=== PATIENT | female | born 1950 | race Caucasian/White ===

== ENCOUNTER 2021-07-23 15:52 | Observation (INO) | payer MEDICARE ==
[~2021-07-23] VITALS: Ht 162.6 cm; Wt 86.6 kg
[2021-07-23] MEDS ORDERED: ASPIRIN 325 MG TAB PO ONE (16:30)
[2021-07-23] MEDS ORDERED: SODIUM CHLORIDE FLUSH 10 ML SYR IV PRN (16:30)
[2021-07-23 16:42] LABS: BASOPHILS # (AUTO) 0.1 (0.0-0.1); BASOPHILS % 0.8 % (0.0-1.0); EOSINOPHILS # (AUTO) 0.3 (0.0-0.4); HEMATOCRIT 41.3 % (34.2-44.1); HEMOGLOBIN 13.6 g/dL (12.0-16.0); LYMPHOCYTES # (AUTO) 2.5 (1.0-3.2); LYMPHOCYTES % 25.2 % (18.0-39.1); MEAN CORPUSCULAR HEMOGLOBIN 28.9 pg (28-32); MEAN CORPUSCULAR HGB CONC 32.9 g/dL (31-35); MEAN CORPUSCULAR VOLUME 87.9 fL (81-99); MONOCYTES % 9.7 % (4.4-11.3); NEUTROPHILS # (AUTO) 6.1 (2.1-6.9); NEUTROPHILS % 60.7 % (38.7-80.0); PLATELET COUNT 366 x10e3/uL (140-360); RED CELL DISTRIBUTION WIDTH 12.6 % (11.7-14.4)
[2021-07-23 17:04] LABS: ALANINE AMINOTRANSFERASE 21 IU/L (0-55); ALBUMIN 3.6 g/dL (3.5-5.0); ALBUMIN/GLOBULIN RATIO 1.1 (0.8-2.0); ALKALINE PHOSPHATASE 104 IU/L (40-150); ANION GAP 14.9 mmol/L (8-16); BLOOD UREA NITROGEN 12 mg/dL (7-26); BUN/CREATININE RATIO 13 (6-25); CALCIUM 9.1 mg/dL (8.4-10.2); CARBON DIOXIDE 26 mmol/L (22-29); CHLORIDE 104 mmol/L (98-107); CREATININE, SERUM 0.91 mg/dL (0.57-1.11); GLUCOSE 109 mg/dL (74-118); POTASSIUM 3.9 mmol/L (3.5-5.1); SODIUM 141 mmol/L (136-145)
[2021-07-23] MEDS ORDERED: ASPIRIN 81 MG CHEW TAB PO ONE (18:00)
[2021-07-23] MEDS ORDERED: SODIUM CHLORIDE FLUSH 10 ML SYR INJ PRN (18:00)
[2021-07-23] MEDS ORDERED: ONDANSETRON HCL INJ 2MG/ML 2ML 2 MG/ML VIAL IV PRN (18:00)
[2021-07-23 20:00] VITALS: BP 145/69
[2021-07-23 20:09] VITALS: BP 145/69
[2021-07-23] MEDS ORDERED: NEURONTIN300 MG PO (21:25)
[2021-07-23] MEDS: GABAPENTIN 300 MG CAP PO SCH (23:08)
[2021-07-24] VITALS (7 sets, daily range): BP systolic 115–152; BP diastolic 56–93
[2021-07-24 00:51] LABS: CREATINE KINASE 95 IU/L (29-168)
[2021-07-24 07:31] LABS: CREATINE KINASE 87 IU/L (29-168)
[2021-07-24] MEDS ORDERED: NITROGLYCERIN 0.4 MG SUBL SL PRN (09:30)
[2021-07-24] MEDS ORDERED: Morphine 2mg Syringe 2 MG/ML SYR IV PRN (09:30)
[2021-07-24] MEDS ORDERED: DOCUSATE SODIUM LIQD 100 MG/10 ML UDC NG PRN (09:45)
[2021-07-24] MEDS ORDERED: HYDRALAZINE HCL 20 MG/ML VIAL IV PRN (09:45)
[2021-07-24] MEDS: ASPIRIN 81 MG ENTERIC COATED PO SCH (10:00)
[2021-07-24] MEDS ORDERED: LASIX40 MG PO (17:06)
[2021-07-24] MEDS ORDERED: FLUOXETINE HCL20 MG PO (17:06)
[2021-07-24] MEDS ORDERED: LISINOPRIL10 MG PO (17:06)
[2021-07-24] MEDS: GABAPENTIN 300 MG CAP PO SCH (20:48)
[2021-07-25 04:00] VITALS: BP 159/77
[2021-07-25 05:26] LABS: BASOPHILS # (AUTO) 0.1 (0.0-0.1); BASOPHILS % 1.1 % (0.0-1.0); EOSINOPHILS # (AUTO) 0.4 (0.0-0.4); EOSINOPHILS % 5.4 % (0.0-6.0); HEMATOCRIT 41.6 % (34.2-44.1); HEMOGLOBIN 13.4 g/dL (12.0-16.0); LYMPHOCYTES # (AUTO) 2.5 (1.0-3.2); LYMPHOCYTES % 30.1 % (18.0-39.1); MEAN CORPUSCULAR HEMOGLOBIN 28.8 pg (28-32); MEAN CORPUSCULAR HGB CONC 32.2 g/dL (31-35); MEAN CORPUSCULAR VOLUME 89.3 fL (81-99); MONOCYTES # (AUTO) 0.8 (0.2-0.8); MONOCYTES % 9.2 % (4.4-11.3); NEUTROPHILS # (AUTO) 4.4 (2.1-6.9); NEUTROPHILS % 53.8 % (38.7-80.0); PLATELET COUNT 327 x10e3/uL (140-360); RED BLOOD COUNT 4.66 x10e6/uL (3.6-5.1); RED CELL DISTRIBUTION WIDTH 12.6 % (11.7-14.4)
[2021-07-25 05:48] LABS: ANION GAP 13.2 mmol/L (8-16); CALCIUM 8.3 mg/dL (8.4-10.2); CREATININE, SERUM 0.85 mg/dL (0.57-1.11); POTASSIUM 4.2 mmol/L (3.5-5.1)
[2021-07-25] MEDS ORDERED: NITROSTAT0.4 MG SL (07:40)
[2021-07-25] MEDS ORDERED: ASPIRIN EC81 MG PO (07:40)
[2021-07-25 08:02] VITALS: BP 149/70
[2021-07-25] MEDS ORDERED: LISINOPRIL 10 MG TAB PO SCH (09:00)
[2021-07-25] MEDS ORDERED: FUROSEMIDE 40 MG TAB PO SCH (09:00)
[2021-07-25] MEDS ORDERED: FLUOXETINE HCL 20 MG CAP PO SCH (09:00)
[2021-07-25] MEDS: ASPIRIN 81 MG ENTERIC COATED PO SCH (09:00)
[2021-07-25 12:20] VITALS: BP 143/72
== END 2021-07-25 12:45 | disposition home or self-care (01) ==
LOC: ER 16:01 → INTOOBSV 17:59 → ERHOLD 17:59 → MED/SURG 19:53
PROVIDERS: ADMIT Internal Medicine; ATTEND Internal Medicine
DX: I20.8 Other forms of angina pectoris (principal); I08.1 Rheumatic disorders of both mitral and tricuspid valves; R07.2 Precordial pain; I10 Essential (primary) hypertension; E11.42 Type 2 diabetes mellitus with diabetic polyneuropathy; E78.5 Hyperlipidemia, unspecified; Z85.3 Personal history of malignant neoplasm of breast; Z87.891 Personal history of nicotine dependence; F12.90 Cannabis use, unspecified, uncomplicated; F10.21 Alcohol dependence, in remission; Z20.822 Contact with and (suspected) exposure to COVID-19; Z79.82 Long term (current) use of aspirin
CPT/HCPCS: 36415; 71045; 80048; 80053; 82550; 82553; 84484; 85025; 85379; 93005; 93306; 94760; 94799; 99284; G0378

== ENCOUNTER → 2024-04-16 | Day surgery (SDC) | payer MEDICARE ==
[2024-04-03 10:53] LABS: BASOPHILS # (AUTO) 0.1 (0.0-0.1); BASOPHILS % 1.1 % (0.0-1.0); EOSINOPHILS # (AUTO) 0.3 (0.0-0.4); EOSINOPHILS % 2.6 % (0.0-6.0); HEMOGLOBIN 15.1 g/dL (12.0-16.0); LYMPHOCYTES # (AUTO) 2.5 (1.0-3.2); LYMPHOCYTES % 24.3 % (18.0-39.1); MEAN CORPUSCULAR HEMOGLOBIN 28.7 pg (28-32); MEAN CORPUSCULAR HGB CONC 33.6 g/dL (31-35); MEAN CORPUSCULAR VOLUME 85.6 fL (81-99); MONOCYTES # (AUTO) 0.9 (0.2-0.8); MONOCYTES % 8.7 % (4.4-11.3); NEUTROPHILS # (AUTO) 6.4 (2.1-6.9); NEUTROPHILS % 62.8 % (38.7-80.0); PLATELET COUNT 412 x10e3/uL (140-360); RED BLOOD COUNT 5.26 x10e6/uL (3.6-5.1); RED CELL DISTRIBUTION WIDTH 12.5 % (11.7-14.4); WHITE BLOOD COUNT 10.18 x10e3/uL (4.8-10.8)
[2024-04-03 11:25] LABS: CALCIUM 9.7 mg/dL (8.4-10.2); CREATININE, SERUM 0.86 mg/dL (0.57-1.11)
[~2024-04-16] MED LIST: ACETAMINOPHEN 1000 MG/100 ML IV PRN; AMLODIPINE BESYL5 MG PO; ASPIRIN 325 MG TAB PO SCH; ASPIRIN EC81 MG PO; BRIMONIDINE TART5 ML OU; CELECOXIB 100 MG CAP PO SCH; CLOPIDOGREL75 MG PO; CRESTOR40 MG PO; DEXAMETHASONE SOD PHOS INJ 4 MG/ML SDV ONE; DIPHENHYDRAMINE HCL INJ 50 MG/ML VIAL IV PRN; DOCUSATE SODIUM 100 MG CAP PO PRN; FENTANYL CITRATE/PF 100MCG/2 ML INJ ONE; FLUOXETINE HCL20 MG PO; HYDROCODONE/APAP 5MG-325MG TAB PO PRN; HYDROCODONE/APAP 7.5MG-325MG 1 EA TAB PO PRN; LASIX40 MG PO; LIDOCAINE HCL 2% LOCAL INJ 5 ML SDV VIAL INJ ONE; LISINOPRIL10 MG PO; METFORMIN HCL500 M2 PO; MIDAZOLAM HCL 2 MG/2 ML VIAL ONE; MOUNJARO15 MG/0.5 SC; NEURONTIN300 MG PO; NITROSTAT0.4 MG SL; ONDANSETRON HCL INJ 2MG/ML 2ML 2 MG/ML VIAL IV PRN; ONDANSETRON HCL INJ 2MG/ML 2ML 2 MG/ML VIAL ONE; PROPOFOL IV EMULSION 10 MG/ML 20 ML VIAL ONE; SEVOFLURANE INHAL SOLN 250 ML PEN BTL ONE; SODIUM CHLORIDE 0.9% 1000ML 1,000 ML IV SCH; SODIUM CHLORIDE 0.9% INJ 10 ML VIAL ONE; ZETIA10 MG PO
[2024-04-16] MEDS: LACTATED RINGER'S 1,000 ML ONE (06:02)
[2024-04-16] MEDS: ACETAMINOPHEN/CODEINE 300MG - 30MG TAB ONE (08:41)
[2024-04-16 09:35] VITALS: BP 140/70; PULSE 69; RESP 18; O2SAT 96
== END | disposition home or self-care (01) ==
LOC: OR 05:28
PROVIDERS: ATTEND Specialist
DX: G56.01 Carpal tunnel syndrome, right upper limb (principal); G56.21 Lesion of ulnar nerve, right upper limb; G47.33 Obstructive sleep apnea (adult) (pediatric); I25.10 Atherosclerotic heart disease of native coronary artery without angina pectoris; I10 Essential (primary) hypertension; E78.5 Hyperlipidemia, unspecified; E11.9 Type 2 diabetes mellitus without complications; E03.9 Hypothyroidism, unspecified; M54.50 Low back pain, unspecified; B19.10 Unspecified viral hepatitis B without hepatic coma; Z88.8 Allergy status to other drugs, medicaments and biological substances; Z91.048 Other nonmedicinal substance allergy status; Z01.810 Encounter for preprocedural cardiovascular examination; Z01.812 Encounter for preprocedural laboratory examination; Z01.818 Encounter for other preprocedural examination; Z79.02 Long term (current) use of antithrombotics/antiplatelets; Z79.84 Long term (current) use of oral hypoglycemic drugs; Z79.899 Other long term (current) drug therapy; Z86.73 Personal history of transient ischemic attack (TIA), and cerebral infarction without residual deficits; Z87.891 Personal history of nicotine dependence; Z85.3 Personal history of malignant neoplasm of breast; Z92.3 Personal history of irradiation
CPT/HCPCS: 29848; 36415 ×2; 64718; 71046; 80048; 82948; 85025; 93005; J0690; J1100; J2003; J2405; J2704; J3010; J7121; J2250